=== PATIENT | male | born 1960 | race Caucasian/White ===

== ENCOUNTER 2017-06-02 12:26 | Emergency (ER) | payer BC ==
[~2017-06-02] VITALS: Ht 175.3 cm; Wt 108.2 kg
[~2017-06-02 12:26] MED LIST: ACAMPROSATE CA333 MG PO; ACCUTREND CHOL1 EAC1 IN; AMOXICILLIN500 MG PO; AVAPRO150 MG PO; AZITHROMYCIN500 M1 PO; CEFTIN500 MG PO; DIOVAN160 MG PO; DUONEB 2.5-0.5 M3 ML AEROSOL; FLEXERIL5 MG PO; HYDROCODON-ACE1 EAC7 PO; LANSOPRAZOLE30 MG PO; LEXAPRO20 MG PO; MEN'S MULTI-VI1 EACH PO; PERCOCET 5/31 TABLET PO; PRILOSEC20 MG PO; ROBITUSSIN AC,T10 ML PO; TAMIFLU75 MG PO; VALIUM5 MG PO; VITAMIN D2000 UNIT PO
[2017-06-02 13:15] LABS: ADD MIUA? YES; BILIRUBIN NEGATIVE; BLOOD LARGE; COLOR YELLOW ((YELLOW)); GLUCOSE (STRIP) NEGATIVE; KETONES 5; LEUKOCYTES NEGATIVE; NITRITE NEGATIVE; PROTEIN (STRIP) 30; SPECIFIC GRAVITY 1.021 (1.000-1.030)
[2017-06-02 13:23] LABS: BASOPHIL COUNT 0.1 K/uL (0-0.1); EOSINOPHIL (%) 2.2 % (0-5); EOSINOPHIL COUNT 0.2 K/uL (0-0.3); HEMATOCRIT 42.2 % (38.0-50.0); IMMATURE GRANULOCYTE (%) 1.1 % (0.0-0.7); IMMATURE GRANULOCYTE COUNT 0.1 K/uL; INSTRUMENT ABS NEUTROPHIL CT 6.4 K/uL; LYMPHOCYTE COUNT 2.2 K/uL (1.0-2.8); MCHC 35.5 G/DL (30.0-36.0); MEAN PLAT.VOLUME 9.1 uM^3 (9.0-12.4); MONOCYTE (%) 8.5 % (3-12); MONOCYTE COUNT 0.8 K/uL (0-0.8); NEUTROPHIL (%) 65.6 % (45-76); NEUTROPHIL COUNT 6.4 K/uL (1.8-6.4); PLATELET COUNT 195 K/uL (156-360); RBC DIS.WIDTH-CV 11.8 % (11.8-14.6); RBC DIS.WIDTH-SD 38.6 % (39-53); RED BLOOD COUNT 4.69 M/uL (4.00-5.50); WHITE BLOOD COUNT 9.8 K/uL (4.1-10.2)
[2017-06-02 13:25] LABS: BACTERIA NONE SEEN /HPF; EPITHELIAL CELLS NONE SEEN /HPF; MUCUS NONE SEEN /LPF; RED BLOOD CELLS TNTC /HPF (0-5); UCUL ADDED? YES; WHITE BLOOD CELLS 0-5 /HPF (0-5)
[2017-06-02 13:29] LABS: CHLORIDE 108 mEq/L (99-109); POTASSIUM 4.5 mEq/L (3.7-5.4); SODIUM 140 mEq/L (136-147)
[2017-06-02 13:31] LABS: GLUCOSE 104 mg/dL (70-99)
[2017-06-02 13:32] LABS: ANION GAP 8 MEQ/L (2-14)
[2017-06-02 13:34] LABS: GFR ESTIMATE (CALCULATED) > 59 mL/min/
[2017-06-02 13:35] LABS: UREA NITROGEN (BUN) 13 mg/dL (9-23)
[2017-06-02] MEDS ORDERED: FLAGYL500 MG PO (15:31)
[2017-06-02] MEDS ORDERED: CIPRO500 MG PO (15:31)
[2017-06-02 15:57] VITALS: BP 135/84
== END 2017-06-02 15:57 | disposition home or self-care (01) ==
LOC: EME 12:26
DX: K61.2 Anorectal abscess (principal); Z87.891 Personal history of nicotine dependence; F10.21 Alcohol dependence, in remission; I10 Essential (primary) hypertension; E78.5 Hyperlipidemia, unspecified; K21.9 Gastro-esophageal reflux disease without esophagitis; Z87.442 Personal history of urinary calculi
CPT/HCPCS: 74177; 80048; 81003; 83605; 85025; 87086; 99281; 99284; J1885